=== PATIENT | female | born 1955 | race African-American/Black ===

== ENCOUNTER 2016-12-02 13:05 | Emergency (ER) | payer MEDICARE, OTHER ==
[2016-12-02 14:41] LABS: HEMOGLOBIN 11.8 gm/dl (12.3-15.3); RED BLOOD COUNT 4.51 M/UL (4.00-5.10); WHITE BLOOD COUNT 8.1 K/UL (4.5-11.0)
[2016-12-02 15:04] LABS: BUN/CREATININE RATIO 9 (0-10)
== END 2016-12-02 16:11 | disposition home or self-care (01) ==
LOC: ER1 13:05
PROVIDERS: Emergency Medicine
DX: K52.9 Noninfective gastroenteritis and colitis, unspecified (principal)
CPT/HCPCS: 36415; 71010; 80053; 81001; 82550; 82553; 83605; 83690; 83874; 84484; 85025; 85610; 85730; 93005; 96372; 99284; J1885

== ENCOUNTER → 2020-11-21 | Outpatient (CLI) | payer MEDICARE, OTHER ==
[~2020-11-21] MED LIST: ABILIFY10 MG PO; ASPIR 8181 MG PO; ASPIRIN 325MG325 MG PO; CRESTOR10 MG PO; HYDROCODON-ACE1 EAC6 PO; INGREZZA PO; ISOSORBIDE MONO30 MG PO; PROPRANOLOL HCL10 MG PO; PROTONIX40 MG PO; PROZAC10 MG PO; TYLENOL325 MG PO; WELLBUTRIN PO
== END ==
LOC: KOH-I 09:24
DX: M54.5 Low back pain (principal); R31.9 Hematuria, unspecified; M47.816 Spondylosis without myelopathy or radiculopathy, lumbar region; M48.061 Spinal stenosis, lumbar region without neurogenic claudication; M48.07 Spinal stenosis, lumbosacral region
CPT/HCPCS: 72110

== ENCOUNTER → 2020-11-28 | Outpatient (CLI) | payer MEDICARE, OTHER | LOC: KOH-I 09:27 | DX: M54.5 Low back pain (principal); R31.9 Hematuria, unspecified | CPT/HCPCS: 74176 ==

== ENCOUNTER → 2021-01-13 | Outpatient (CLI) | payer MEDICARE, OTHER ==
[2021-01-13 10:07] LABS: HEMOGLOBIN 13.6 gm/dl (12.3-15.3); RED BLOOD COUNT 4.97 M/UL (4.00-5.10); WHITE BLOOD COUNT 6.8 K/UL (4.5-11.0)
[2021-01-13 10:11] LABS: BUN/CREATININE RATIO 8 (0-10)
== END ==
LOC: EDSTATUS 09:00 → OPSV2 09:00
PROVIDERS: Orthopaedic Surgery
DX: Z01.818 Encounter for other preprocedural examination (principal); M17.11 Unilateral primary osteoarthritis, right knee
CPT/HCPCS: 36415; 71046; 80048; 81001; 85025; 87081; 93005

== ENCOUNTER → 2021-01-26 | Outpatient (CLI) | payer MEDICARE, OTHER ==
[2021-01-26 12:36] LABS: BUN/CREATININE RATIO 8 (0-10)
== END ==
LOC: LAB 10:49
PROVIDERS: Orthopaedic Surgery
DX: Z01.812 Encounter for preprocedural laboratory examination (principal); M17.11 Unilateral primary osteoarthritis, right knee
CPT/HCPCS: 80048; 86850; 86900; 86901

== ENCOUNTER 2021-01-27 05:47 | Day surgery (SDC) | payer MEDICARE, OTHER ==
[~2021-01-27] VITALS: Ht 170.2 cm; Wt 122.5 kg
[~2021-01-27 05:47] MED LIST changes: -ASPIRIN 325MG325 MG PO; -HYDROCODON-ACE1 EAC6 PO
[2021-01-28 06:04] LABS: HEMOGLOBIN 11.1 gm/dl (12.3-15.3); RED BLOOD COUNT 4.05 M/UL (4.00-5.10); WHITE BLOOD COUNT 10.1 K/UL (4.5-11.0)
[2021-01-28 06:21] LABS: BUN/CREATININE RATIO 11 (0-10)
--- NOTE | 2021-01-29 01:24 | NUR ---
REPORT GIVEN TO BARBY PEDROZA AT 1593. RIGHT KNEE DRESSING CDI, CMS CHECK RIGHT LEG WNL, VSS, MEDICATED WITH HYDROCODONE ONCE FOR PAIN.
[2021-01-29 03:23] LABS: HEMOGLOBIN 11.2 gm/dl (12.3-15.3); RED BLOOD COUNT 4.15 M/UL (4.00-5.10)
[2021-01-29 04:16] LABS: BUN/CREATININE RATIO 11 (0-10)
[2021-01-29] MEDS ORDERED: HYDROCODON-ACE1 EAC6 PO (07:26)
[2021-01-29] MEDS ORDERED: ASPIRIN 325MG325 MG PO (09:09)
--- NOTE | 2021-01-29 13:12 | NUR ---
INSTRUCTED ON MEDS AT PHARMACY, KEEP DRESSING INTACT. DO NOT SUMERGE WOUND KEEP FOLLOW UP APPOINTMENTS. HOME HEALTH TO ASSIST WITH HOME CARE. VERBALIZED UNDERSTANDING, HORTENCIA PEREZ R.N.
== END 2021-01-29 13:55 | disposition home or self-care (01) ==
LOC: OR 05:47 → EDSTATUS 07:30 → M/S 12:04 → OR 01-29 13:55
PROVIDERS: Orthopaedic Surgery
DX: M17.11 Unilateral primary osteoarthritis, right knee (principal); G89.18 Other acute postprocedural pain; F32.9 Major depressive disorder, single episode, unspecified; I25.10 Atherosclerotic heart disease of native coronary artery without angina pectoris; E66.01 Morbid (severe) obesity due to excess calories; E87.6 Hypokalemia; K57.30 Diverticulosis of large intestine without perforation or abscess without bleeding; G24.01 Drug induced subacute dyskinesia; Z68.41 Body mass index [BMI] 40.0-44.9, adult; Z79.899 Other long term (current) drug therapy
CPT/HCPCS: 36415; 73560; 76000; 80048; 85025; 97110-GP-CQ; 97116-GP-CQ; 97161; 97166; 97530-GP-CQ; 97535; C1776; J0690; J1100; J2001; J2250; J2405; J2704; J2710; J2795; J3010; J7120

== ENCOUNTER 2021-02-08 19:35 | Emergency (ER) | payer MEDICARE, OTHER ==
[~2021-02-08 19:35] MED LIST changes: +ASPIRIN 325MG325 MG PO; +HYDROCODON-ACE1 EAC6 PO
[2021-02-08 20:03] LABS: HEMOGLOBIN 11.4 gm/dl (12.3-15.3); RED BLOOD COUNT 4.16 M/UL (4.00-5.10); WHITE BLOOD COUNT 9.6 K/UL (4.5-11.0)
[2021-02-08 20:24] LABS: BUN/CREATININE RATIO 8 (0-10)
== END 2021-02-08 23:38 | disposition home or self-care (01) ==
LOC: ER1 19:35
PROVIDERS: Physician Assistant
DX: R55 Syncope and collapse (principal); Z90.49 Acquired absence of other specified parts of digestive tract
CPT/HCPCS: 70450; 71045; 80053; 81001; 82550; 82553; 83874; 84439; 84443; 84484; 85025; 87086; 93005; 93242; 99284; Q9967

== ENCOUNTER 2021-04-11 12:44 | Emergency (ER) | payer MEDICARE, OTHER ==
[2021-04-11 14:07] LABS: HEMOGLOBIN 11.8 gm/dl (12.3-15.3); RED BLOOD COUNT 4.51 M/UL (4.00-5.10); WHITE BLOOD COUNT 4.8 K/UL (4.5-11.0)
[2021-04-11 14:31] LABS: BUN/CREATININE RATIO 7 (0-10)
[2021-04-11] MEDS ORDERED: OMNICEF 300 MG300 MG PO (18:54)
[2021-04-11] MEDS ORDERED: ZITHROMAX250 MG PO (18:54)
== END 2021-04-11 22:30 | disposition home or self-care (01) ==
LOC: ER1 12:44
PROVIDERS: Emergency Medicine
DX: U07.1 COVID-19 (principal); J12.82 Pneumonia due to coronavirus disease 2019; N39.0 Urinary tract infection, site not specified; Z23 Encounter for immunization
CPT/HCPCS: 71045; 80053; 81001; 82550; 82553; 83690; 83735; 83874; 84484; 85025; 85379; 87040; 93005; 96374; 96375; 99284; J0696; M0243; Q9967; U0002

== ENCOUNTER 2021-07-17 08:56 | Emergency (ER) | payer MEDICARE, OTHER ==
[~2021-07-17 08:56] MED LIST changes: +OMNICEF 300 MG300 MG PO; +ZITHROMAX250 MG PO
[2021-07-17 09:49] LABS: HEMOGLOBIN 12.5 gm/dl (12.3-15.3); RED BLOOD COUNT 4.74 M/UL (4.00-5.10); WHITE BLOOD COUNT 6.8 K/UL (4.5-11.0)
[2021-07-17 10:19] LABS: BUN/CREATININE RATIO 10 (0-10)
== END 2021-07-17 11:45 | disposition home or self-care (01) ==
LOC: ER1 08:56
PROVIDERS: Emergency Medicine
DX: H53.8 Other visual disturbances (principal); R25.1 Tremor, unspecified; E78.5 Hyperlipidemia, unspecified
CPT/HCPCS: 70450; 71045; 80053; 82550; 82553; 83874; 84484; 85025; 93005; 99284

== ENCOUNTER → 2021-09-11 | Outpatient (CLI) | payer MEDICARE, OTHER | LOC: KOH-I 15:30 | DX: R55 Syncope and collapse (principal); I10 Essential (primary) hypertension | CPT/HCPCS: 74176 ==

== ENCOUNTER → 2021-12-25 | Outpatient (CLI) | payer MEDICARE, OTHER | LOC: MRI 12:14 | DX: G45.0 Vertebro-basilar artery syndrome (principal); H53.9 Unspecified visual disturbance; R29.818 Other symptoms and signs involving the nervous system; G25.2 Other specified forms of tremor; G24.01 Drug induced subacute dyskinesia; R90.89 Other abnormal findings on diagnostic imaging of central nervous system | CPT/HCPCS: 70498; 70551; Q9967 ==

== ENCOUNTER → 2022-01-18 | Outpatient (CLI) | payer MEDICARE, OTHER | LOC: LAB 14:55 | DX: H53.123 Transient visual loss, bilateral (principal); H53.19 Other subjective visual disturbances | CPT/HCPCS: 36415; 85652; 86140 ==

== ENCOUNTER → 2022-03-29 | Outpatient (CLI) | payer MEDICARE, OTHER | LOC: RAD 12:07 | DX: R06.09 Other forms of dyspnea (principal); R32 Unspecified urinary incontinence; I10 Essential (primary) hypertension; H25.9 Unspecified age-related cataract; M54.50 Low back pain, unspecified; T50.905S Adverse effect of unspecified drugs, medicaments and biological substances, sequela; I77.9 Disorder of arteries and arterioles, unspecified; E86.0 Dehydration | CPT/HCPCS: 71046 ==

== ENCOUNTER → 2022-05-06 | Outpatient (CLI) | payer MEDICARE, OTHER | LOC: KOH-I 09:25 | DX: R06.09 Other forms of dyspnea (principal); R32 Unspecified urinary incontinence; I10 Essential (primary) hypertension; H25.9 Unspecified age-related cataract; M54.50 Low back pain, unspecified; T50.905S Adverse effect of unspecified drugs, medicaments and biological substances, sequela; I77.9 Disorder of arteries and arterioles, unspecified; R42 Dizziness and giddiness; M47.814 Spondylosis without myelopathy or radiculopathy, thoracic region; M47.816 Spondylosis without myelopathy or radiculopathy, lumbar region | CPT/HCPCS: 72070; 72100 ==